=== PATIENT | female | born 2000 | race Caucasian/White ===

== ENCOUNTER → 2022-05-02 | Day surgery (SDC) | payer MEDICAID ==
[~2022-05-02] VITALS: Ht 137.2 cm; Wt 68.0 kg
[~2022-05-02] MED LIST: ASPI-1497 PO; BUPIVACAINE HCL/PF 0.5% (5MG/ML) 10ML ONE; BUPIVACAINE HCL/PF 0.5% (5MG/ML) 30ML ONE; CEFAZOLIN SODIUM 1000MG/VIAL ONE; CHOL100046 PO; FENTANYL CITRATE/PF 50MCG/ML 2ML VIAL IV PRN; FENTANYL CITRATE/PF 50MCG/ML 2ML VIAL ONE; GLYCOPYRROLATE 0.2 MG/ML 2ML VIAL ONE; HYDROMORPHONE HCL/PF 2MG/ML CPJ IV PRN; KETOROLAC 30MG/ML VIAL ONE; LACTATED RINGERS 1,000 ML IV SCH; MEPERIDINE HCL/PF 25MG/ML CPJ IV PRN; MIDAZOLAM HCL 2 MG/2 ML VIAL ONE; MULT-1146 PO; OMEP20CA14 PO; ONDANSETRON HCL 4MG/2ML INJ IV PRN; ONDANSETRON HCL 4MG/2ML INJ ONE; PROPOFOL 200MG/20ML VIAL IV ONE; ROCURONIUM BROMIDE 10MG/ML VIAL 5ML IV ONE; SKIN ADHESIVE 0.7 GM EA TOP ONE
[2022-05-02 07:25] LABS: UCG SCREEN NEGATIVE
[2022-05-02 10:32] VITALS: BP 132/89
== END | disposition home or self-care (01) ==
LOC: CANPRESDC → OR 06:34
PROVIDERS: ATTEND Surgery
DX: K80.10 Calculus of gallbladder with chronic cholecystitis without obstruction (principal); Z79.899 Other long term (current) drug therapy; Z98.890 Other specified postprocedural states; Z20.822 Contact with and (suspected) exposure to COVID-19; Z79.82 Long term (current) use of aspirin
CPT/HCPCS: 47562; 81025; 87426; 88304; C9803; J0690; J1170; J1885; J2250; J2405; J2704; J3010; J3490